=== PATIENT | female | born 1950 | race Caucasian/White ===

== ENCOUNTER 2022-03-20 14:11 | Outpatient (REF) | payer OTHER, SELFPAY ==
--- NOTE | ~2022-03-20 | MM_ITS ---
EXAMINATION: BONE DENSITOMETRY CLINICAL INDICATION: Other specified disorders of bone density and structure. COMPARISON: None (current study represents initial baseline exam). TECHNIQUE: Using a [facility] DXA System (software version: 13.1) manufactured by [employer], dual-energy x-ray absorptiometry was performed of the lumbar spine and left hip. The images are of good technical quality. Summary results are attached. FINDINGS: AP SPINE L1-L3 (excluding L4): The data of L1-L4 has been changed to exclude the L4 vertebral body, because degenerative changes at this level may cause overestimation of lumbar spine density. BMD 0.820 g/cm2, Z-score -0.9, T-score -2.9, osteoporosis. LEFT FEMUR, NECK: BMD 0.762 g/cm2, Z-score -0.1, T-score -2.0, osteopenia. LEFT FEMUR, TOTAL: BMD 0.799 g/cm2, Z-score 0.1, T-score -1.7, osteopenia. IDENTIFIED RISK FACTORS: Osteoporosis, history of fracture (adult), tobacco use (current smoker), menopause. HISTORY OF FRACTURE: Pelvis. MEDICATIONS: Calcium supplements or multivitamin, vitamin D. MM/XR DEXA axial skeleton IMPRESSION: 1. DIAGNOSIS: Osteoporosis based on the lowest T-score value of -2.9 in the lumbar spine applying World Health Organization criteria. 2. 10-YEAR FRACTURE RISK PREDICTION, FRAX: According to the guidelines, FRAX calculation should only be performed on patients in the osteopenia bone density category. Therefore, FRAX was not performed on this patient. 3. Treatment Recommendations: NOF guidelines recommend consideration for treatment in postmenopausal women and men age 50 and older presenting with the following: -A hip or vertebral (clinical or morphometric) fracture. -T-score less than or equal to -2.5 at the femoral neck or spine after appropriate evaluation to exclude secondary causes. -Low bone mass at the hip or spine and a 10-year fracture probability by FRAX of greater than or equal to 3% for hip fracture or greater than or equal to 20% for major osteoporotic fracture based on the [place] adapted WHO algorithm. 4. Other Recommendations: All treatment decisions require clinical judgment and consideration of individual patient factors, including patient preferences, comorbidities, previous drug use, risk factors not captured in the FRAX model (e.g. frailty, falls, vitamin D deficiency, increased bone turnover, interval significant decline in bone density) and possible under or overestimation of fracture risk by FRAX. Additional medical evaluation for secondary cause of low bone mineral density may be appropriate. FUTURE SCAN RECOMMENDATION: People with diagnosed cases of osteoporosis or at high risk for fracture should have regular bone mineral density tests. For patients eligible for Medicare, routine testing is allowed once every 2 years. The testing frequency can be increased to one year for patients who have rapidly progressing disease, those who are receiving or discontinuing medical therapy to restore bone mass, or have additional risk factors.
== END 2022-03-20 14:12 | disposition home or self-care (01) ==
LOC: HO.MAMMO 14:11
PROVIDERS: PCP Nurse Practitioner; Visit Provider Nurse Practitioner Family
DX: Z13.820 Encounter for screening for osteoporosis (principal); M85.80 Other specified disorders of bone density and structure, unspecified site; Z78.0 Asymptomatic menopausal state; Z72.0 Tobacco use
CPT/HCPCS: 77080

== ENCOUNTER 2022-03-26 13:37 | Outpatient (REF) | payer OTHER, SELFPAY ==
--- NOTE | ~2022-03-26 | CT_ITS ---
EXAMINATION: CT CHEST WITH CONTRAST CT ABDOMEN AND PELVIS WITH CONTRAST CLINICAL INFORMATION: Weight loss, COPD and pneumonia. COMPARISON: None TECHNIQUE: 5 mm thin axial and reformatted 3 mm thin sagittal and coronal images of the chest, abdomen and pelvis were obtained with IV 85 mL Omnipaque 350. This CT examination was performed using dose optimization technique as appropriate, variously including the following: Automated exposure control Adjustment of MA and/or KV according to patient size(this includes techniques or standardized protocols for targeted exams where dose is matched to indication/reason for exam; extremities or head. Use of iterative reconstruction techniques. DLP: 66 mGy-cm FINDINGS: CHEST: Lungs: The lungs are well expanded with small left upper lobe cysts adjacent to the mediastinum. There are no lung nodules, mass or consolidation. There is no acute consolidation or ground-glass nodules. There is band-like atelectasis with a collapsed right middle lobe. Mediastinum: Heart size and the great vessels are normal caliber. Central trachea and the bronchi are widely patent. There is no pericardial effusion. The soft tissues are normal. No abnormal-sized mediastinal or hilar lymph nodes are seen. Pleura: There is no pleural thickening or effusion seen. Axillae: There are no abnormal axillary lymph nodes. Chest wall is unremarkable. ABDOMEN AND PELVIS: Liver, Bile Ducts and Gallbladder: The liver is in normal size, contour and density. No focal lesion or intrahepatic ductal dilatation is seen. There are no gallstones. Spleen: Unremarkable. Adrenal Glands: Unremarkable. Kidneys and Ureters: Both kidneys are normal in size, shape and contour. There is a 2.0 x 1.9 cm cyst in the mid pole of the right kidney. There is a 7 mm hypodensity is seen in the mid pole of the left kidney. No radiopaque calculi or hydronephrosis is seen. GI Tract: There is oral contrast seen throughout the entire colon which is normal caliber. There is moderate stool in the colon without distention. The small bowel loops are normal caliber. The stomach is nondistended. There is a small posterior extrusion in the fundus suspicious for a diverticulum. It is best visualized on axial image 11/3. There is diffuse colonic diverticulosis with diffuse mural thickening involving the sigmoid colon but no pericolic fat stranding. No free air or free fluid is seen. No abnormal mesenteric lymph nodes. Lymphovascular Structures: There is a 2 cm abdominal aorta with mild atherosclerosis. No aneurysm is seen. Mild atherosclerotic calcification is seen throughout both common iliac arteries. No abnormal-sized retroperitoneal or pelvic lymph nodes are seen. Abdominal Wall: Unremarkable. Pelvis: The bladder is nondistended and appears unremarkable. The uterus is anteverted and appears unremarkable. No adnexal mass or free fluid is seen. No abnormal pelvic lymph nodes. Osseous Structures: There is grade 1 anterolisthesis of L4 on L5 with mild loss of L4-L5 disc height. The rest of the lumbosacral spine is unremarkable. There is mild L4-L5 and L5-S1 facet joint arthropathy. CT/CT abdomen pelvis w con IMPRESSION: Right middle lobe collapse/atelectasis with no obstructive etiology seen. Diffuse colonic diverticulosis, most prominent in the sigmoid colon, with mild mural thickening but no pericolic fat stranding. Minimal thickening could be secondary to low-grade inflammation or underlying lesion. Recommend colonoscopy. No abnormal retroperitoneal or pelvic lymph nodes are seen. Bilateral renal cysts. No radiopaque renal calculi or hydronephrosis.
[2022-03-26] MEDS: iohexoL 350 MG/ML 100 ML INFUS..BTL IV (17:15)
[2022-03-26] MEDS: Barium Sulfate Oral (Berry) 450 ML ORAL.SUSP 900 ML PO (17:17)
== END 2022-03-26 13:38 | disposition home or self-care (01) ==
LOC: HO.CT 13:37
PROVIDERS: Visit Provider Nurse Practitioner
DX: J44.9 Chronic obstructive pulmonary disease, unspecified (principal); R63.4 Abnormal weight loss; R63.0 Anorexia; Z72.0 Tobacco use
CPT/HCPCS: 71260; 74177; Q9967